=== PATIENT | female | born 1985 | race Caucasian/White ===

== ENCOUNTER 2024-01-05 15:44 | Emergency (ER) | payer OTHER, MEDICAID ==
[~2024-01-05] VITALS: Ht 170.2 cm; Wt 81.6 kg
[2024-01-05 15:49] VITALS: BP 142/93; PULSE 94; RESP 16; TEMP 97.2; O2SAT 100
[2024-01-05 16:30] VITALS: O2SAT 100
[2024-01-05] MEDS: ONDANSETRON 4 MG ODT PO ONE (17:16)
[2024-01-05] MEDS: MORPHINE SULFATE 4 MG/ML SYR IM ONE (17:17)
[2024-01-05 17:59] LABS: BASOPHILS % (AUTO) 0.4 % (0.0-2.0); EOSINOPHILS # (AUTO) 0.1 K/uL (0-0.4); EOSINOPHILS % (AUTO) 0.7 % (0.0-4.0); HEMATOCRIT 35.6 % (36-48); HEMOGLOBIN 12.1 g/dL (12.0-16.0); LYMPHOCYTES # (AUTO) 1.8 K/uL (2.5-16.5); LYMPHOCYTES % (AUTO) 24.9 % (20.5-51.1); MEAN CORPUSCULAR HEMOGLOBIN 31 pg (27-31); MEAN CORPUSCULAR HGB CONC 34 g/dL (33-37); MEAN CORPUSCULAR VOLUME 89.8 fL (80-94); MONOCYTES # (AUTO) 0.4 K/uL (0.8-1.0); MONOCYTES % (AUTO) 5.8 % (1.7-9.3); NEUTROPHILS # (AUTO) 4.9 K/uL (1.8-7.7); NEUTROPHILS % (AUTO) 68.2 % (42.2-75.2); PLATELET COUNT (AUTO) 279 K/uL (140-450); RED BLOOD CELL COUNT(AUTO) 3.97 MIL/uL (4.20-5.40); RED CELL DISTRIBUTION WIDTH 13.4 % (11.6-13.7); WHITE BLOOD COUNT (AUTO) 7.2 K/uL (4.8-10.8)
[2024-01-05 18:10] VITALS: BP 137/82; PULSE 88; RESP 16; TEMP 97.9
[2024-01-05 18:23] LABS: ALBUMIN 3.7 g/dL (3.4-5.0); CALCIUM 9.2 mg/dL (8.5-10.1); CARBON DIOXIDE 26.2 mmol/L (21-32); CREATININE 0.6 mg/dL (0.6-1.3); POTASSIUM 4.2 mmol/L (3.5-5.1); TOTAL BILIRUBIN 0.3 mg/dL (0.0-1.0); TOTAL PROTEIN, SERUM 7.6 g/dL (6.4-8.2)
[2024-01-05 18:39] LABS: APPEARANCE,URINE CLEAR (CLEAR); BILIRUBIN,URINE NEGATIVE (NEGATIVE); BLOOD, URINE NEGATIVE (NEGATIVE); COLOR,URINE YELLOW (YELLOW); LEUKOCYTE ESTERASE ,URINE NEGATIVE (NEGATIVE); NITRITE, URINE NEGATIVE (NEGATIVE); PROTEIN,URINE NEGATIVE (NEGATIVE); UGLUCOSE NEGATIVE (NEGATIVE); UROBILINOGEN,URINE 0.2 EU/dL (0.2 - 1)
[2024-01-05 18:45] VITALS: O2SAT 98
[2024-01-05] MEDS: HYDROcodone/APAP 5/325 MG 1 TAB TAB PO ONE (18:58)
[2024-01-05] MEDS: ALUMINUM HYD/MAG/SIMETHICONE 30 ML UDC PO ONE (18:59)
[2024-01-05] MEDS ORDERED: ACET500T99 PO (19:01)
[2024-01-05] MEDS ORDERED: MAG355OR2 PO (19:01)
[2024-01-05] MEDS ORDERED: ONDA-188 PO (19:01)
[2024-01-05] MEDS ORDERED: SENN1TAB80 PO (19:01)
== END 2024-01-05 19:25 | disposition home or self-care (01) ==
LOC: MED 15:44
DX: R10.9 Unspecified abdominal pain (principal); R11.0 Nausea; R68.83 Chills (without fever); Z79.899 Other long term (current) drug therapy; Z88.8 Allergy status to other drugs, medicaments and biological substances; Z88.6 Allergy status to analgesic agent
CPT/HCPCS: 36415; 74176; 80053; 81003; 81025; 83690; 85025; 96372; 99285; J2270; Q0162